=== PATIENT | female | born 1965 | race Caucasian/White ===

== ENCOUNTER → 2017-12-26 | Outpatient (CLI) | payer OTHER ==
[~2017-12-26] MED LIST: ADVAIR 100-501 EACH INH; FLEXERIL PO; FLONASE 0.05%50 MCG NASAL; IBUPROFEN 200200 M1 PO; MOBIC15 MG PO; PAXIL10 MG PO; SYNTHROID150 MCG PO
--- NOTE | 2018-01-15 13:50 | PAINCON ---
[address] [address] PAIN MANAGEMENT CONSULTATION Name: SREE HARRELL [facility] [id number] Admission: 12/26/17 Attend Phys: Lamonte Mclaughlin MD Discharge: Date of : 69 Report #: [id number] THIS REPORT FOR: //name// CC: Jarad Mclaughlin DATE OF SERVICE: 12/26/2017 CHIEF COMPLAINT: Back pain since May. 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 There has been some revenue shortfalls. She has been given more tasks of walking and wearing her uniform. As a result of that she has noted some increased pain and discomfort in the low back area. Pain is worse when she is sitting and bending. Pain improved somewhat when she is lying down. She did go to a chiropractor. A number of procedures were performed. She was given options of additional therapy. At this juncture, she was interested in other options. She finds that the Flexeril medication is helpful, but causes her to feel sleepy. She has tried ibuprofen. Pain involves her lower back and into her hip and into the buttocks areas bilaterally. Denies any bowel or bladder dysfunction. ALLERGIES: No known drug allergies. MEDICATIONS: Cyclobenzaprine 10 mg t.i.d., prednisone dosing was prescribed, but not used at this juncture, Ambien 10 mg p.r.n. insomnia, ProAir 2 puffs p.r.n., Synthroid 150 mcg, Paroxetine 20 mg, fluticasone 2 sprays each nostril daily, and Advair 2 puffs daily. PAST MEDICAL HISTORY: Chronic low back pain, hypothyroidism, anxiety, asthma, allergic rhinitis, and SLE in remission. PAST SURGICAL HISTORY: None. 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 She is working. REVIEW OF SYSTEMS: General, fatigue/weakness, hearing loss/ringing in the ears, asthma, frequent urination, awakens to urinate at night, joint pain, and back pain. LABORATORY DATA: L-spine MRI dated 11/28/2017, L4-L5 broad-based disk bulge and posterior hyperintense annular fissure. No central spinal canal stenosis. Mild bilateral neural foraminal narrowing. L5-S1 disk bulge/osteophyte and small annular tear. No central spinal stenosis. Bilateral foraminal narrowing, left [place] [address] PAIN MANAGEMENT CONSULTATION Name: SREE HARRELL Room: [facility]#: [id number] Admission: 12/26/17 Attend Phys: Lamonte Mclaughlin MD Discharge: Date of : 69 Report #: [id number] PAIN CLINIC ASSESSMENT: 1. The patient is not being treated for osteoarthritis or rheumatoid arthritis. 2. Height 5 feet 11 inches, weight 179 pounds, BMI is 24. 3. Vital signs: Blood pressure is 116/75, heart rate 80, respiratory rate 16, room air saturation 95%, temperature 98.2. 4. Pain intensity 4-5/10. 5. Fall risk. The patient has not fallen in the last 3 months. 6. Blood thinner. The patient is not on a blood thinning agent. 7. History of hypertension. The patient is not being treated for hypertension. 8. Opioid medications greater than 6 weeks. The patient is not on an opioid medication. 9. Risk assessment tool. 10. Functional assessment tool. The patient's score 16/70 indicating mild problems with activities of daily living secondary to pain. 11. Recreational drug use. The patient denies use of recreational drugs. 12. Tobacco: The patient denies use of tobacco. 13. Alcohol frequency, the patient drinks about 1-2 alcoholic beverages per week. PHYSICAL EXAMINATION: GENERAL: The patient is a well-developed, well-nourished white female. She is more alert and oriented x 3. Affect is appropriate. Speech is fluent. HEENT: Normocephalic, atraumatic. Extraocular eye muscles intact. Sclerae nonicteric. Mucous membranes are moist. NECK: Without adenopathy or JVD, no bruits. HEART: Regular rate, normal S1, S2. LUNGS: Clear to auscultation without rales or crackles. ABDOMEN: Nontender. MUSCULOSKELETAL: Without significant kyphosis, scoliosis or lordosis. Upper extremity muscle strength is 5/5 without sensory changes. Muscle bulk is symmetrical in lower extremity. The patient is able to walk on her heels, toes. Deep tendon reflexes are +1 at the knees and ankles bilaterally, +2 for the biceps, and trace for brachioradialis reflexes. Anterior and posterior spring tests are negative. Giancarlo sign is negative. placement of the patient's leg, left and right did not cause any back pain or discomfort. Palpation in the posterior superior iliac spine areas near the gluteus rosie as well as latissimus dorsi did cause some pain and discomfort in the patient's left side greater than right. Sensory exam of the lower extremity is within normal limits. IMPRESSION: 1. 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 Myofascial pain in the lower back. 2. Hypothyroidism. 3. Allergic rhinitis. 4. Asthma. [facility] [address] [place] [address] PAIN MANAGEMENT CONSULTATION Name: SREE HARRELL Room: [facility]#: [id number] Admission: 12/26/17 Attend Phys: Lamonte Mclaughlin MD Discharge: Date of : 69 Report #: [id number] 5. Anxiety. RECOMMENDATIONS: We discussed treatment options with the patient. It appears that her pain is myofascial in nature. Palpation in the low back area does reproduce a component of the pain. A model was used to indicate the area of probable pathology. The patient states that she has not undergone physical therapy. I think that this would be the most appropriate thing at this juncture. After physical therapy, if her pain continues and persist, we can consider trigger point injection to the low back area to help decrease pain and discomfort. The patient is in agreement with that. She will follow up in the future as needed. We would like to thank you for letting us participate in her care. We hope she continues to improve. <ELECTRONICALLY SIGNED> By: Lamonte Mclaughlin MD 01/15/18 1350 [id number]. Noam Mclaughlin MD /nt
== END ==
LOC: M.PC 04:33
DX: M54.5 Low back pain (principal); E03.9 Hypothyroidism, unspecified; J45.909 Unspecified asthma, uncomplicated

== ENCOUNTER → 2018-01-30 | Outpatient (CLI) | payer OTHER ==
--- NOTE | 2018-01-30 15:18 | PAINCON ---
[address] [address] PAIN MANAGEMENT CONSULTATION Name: SREE HARRELL Room: [facility] JHON Dunn.#: [id number] Admission: 01/30/18 Attend Phys: Lamonte Mclaughlin MD Discharge: Date of : 69 Report #: [id number] THIS REPORT FOR: //name// CC: Jarad Mclaughlin DATE OF SERVICE: 01/30/2018 FOLLOWUP COMPLAINT: "Here for renewal of the meloxicam. It was working really well. 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 She has been followed by the Pain Clinic. She has had an increased level of activity in her job. Changes in the department has required that she walk and do more task wearing her uniform. She noticed some worsening of her pain and discomfort. She has been seen by the physical therapist. She found that 3 times a week has been beneficial. She feels that she has made some significant gains. She feels that the meloxicam is efficacious. She ran out of meloxicam about a week ago. She has noted some differences. She had no problems with her GI tract. Feels that overall things are going reasonably well. Feels that some additional therapy 2 times a week would be beneficial and would like to try that. She would also like to have her medications renewed. She finds that Flexeril medication was helpful, but sometimes caused her to feel sleepy. Feels that the meloxicam has been better than ibuprofen. She continues to have some lower back pain and discomfort. She rates her pain as a 3/10 at this juncture. ALLERGIES: No known drug allergies. CURRENT MEDICATIONS: Cyclobenzaprine 10 mg 1 p.o. t.i.d., Ambien 10 mg p.r.n. insomnia, ProAir 2 puffs p.r.n., Synthroid 150 mcg, paroxetine 20 mg, fluticasone 2 sprays each nostril daily, Advair 2 puffs daily, meloxicam 15 mg 1 p.o. daily. PAIN CLINIC ASSESSMENT: 1. The patient is not being treated for rheumatoid arthritis or osteoarthritis. 2. Height 5 feet 11 inches, weight 180 pounds, BMI is 25. 3. Vital signs: Blood pressure 125/76, heart rate 68, respiratory rate 16, room air saturation 96, temperature 98.5. 4. Fall risk: The patient has not fallen in the last 3 months. 5. Blood thinner: The patient is not on a blood thinning agent. 6. History of hypertension: The patient has not been treated for hypertension. 7. Opioid medications greater than 6 weeks: The patient is not taking opioid medications. 8. Risk assessment tool. 9. Functional assessment tool: The patient's score is 16/70, showing mild [facility] [address] [place] [address] PAIN MANAGEMENT CONSULTATION Name: SREE HARRELL Room: [facility]#: [id number] Admission: 01/30/18 Attend Phys: Lamonte Mclaughlin MD Discharge: Date of : 69 Report #: [id number] problems with activities of daily living secondary to pain. 10. Recreational drug use: The patient denies use of recreational drugs. 11. Tobacco: The patient denies use of tobacco. 12. Alcohol: The patient drinks about 1-2 alcoholic beverages per week. PHYSICAL EXAMINATION: GENERAL: The patient is a well-developed, well-nourished white female. She appears her stated age. She is alert and oriented x 3. Speech is fluent. HEENT: Normocephalic, atraumatic. Extraocular eye muscles intact. Sclerae nonicteric. Mucous membranes are moist. NECK: Without adenopathy, JVD or bruits. HEART: Regular rate. Normal S1 and S2. LUNGS: Clear to auscultation without rales or rhonchi. ABDOMEN: Nontender. MUSCULOSKELETAL: Without kyphosis, scoliosis or lordosis. Upper muscle strength is judged to be 5/5 without changes. Muscle bulk is symmetric. Low back: The patient has some low back pain and discomfort, which is improving with physical therapy. Muscle strength is judged to be 5/5 for the major muscle groups. The patient has some generalized low back pain without radiculopathy at this juncture. IMPRESSION: 1. 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 2. Myofascial pain. 3. Hyperthyroidism. 4. Allergic rhinitis. 5. Asthma. 6. Anxiety. RECOMMENDATIONS: We will continue with the patient's current use of meloxicam, she finds that this medication is helpful. A script for meloxicam with 3 refills has been written. She will also continue with cyclobenzaprine p.r.n. We explained that use of the nonsteroidal anti-inflammatory medication can be used more episodic. If she should note any problems with her GI tract, she should stop using this medication. She will continue with physical therapy over the next month 2 times per week. She will return to the Pain Clinic should her pain continues to be problematic. We would like to thank you for letting us participate in her care. We hope she continues to improve. <ELECTRONICALLY SIGNED> By: Lamonte Mclaughlin MD 01/30/18 1518 [id number]. Noam Mclaughlin MD /nt
== END ==
LOC: M.PC 03:24
DX: M54.5 Low back pain (principal); E03.9 Hypothyroidism, unspecified; M79.1 Myalgia; J45.909 Unspecified asthma, uncomplicated; F41.9 Anxiety disorder, unspecified